=== PATIENT | female | born 1945 | race Caucasian/White ===

== ENCOUNTER 2018-09-26 05:45 | Day surgery (SDC) | payer MEDICARE ==
[2018-09-26] MEDS ORDERED: DIPRIVAN 200 MG/20 ML IV ONE (05:46)
[2018-09-26] MEDS ORDERED: Lactated Ringers 1,000 ML IV SCH (06:30)
[2018-09-26 08:52] VITALS: PULSE 50; O2SAT 99
[2018-09-26 09:07] VITALS: BP 133/76
--- NOTE | 2018-09-26 09:29 | OP ---
SURGERY DATE/TIME: 09/26/2018 0731 PREOPERATIVE DIAGNOSIS: Screening colonoscopy. POSTOPERATIVE DIAGNOSIS: Normal colon. PROCEDURE: Colonoscopy. SURGEON: Carlos Alberto Humphrey M.D. ANESTHESIA: MAC. ESTIMATED BLOOD LOSS: None. SPECIMENS: None. DESCRIPTION OF PROCEDURE: After informed written consent was obtained, the patient was taken to the endoscopy suite. She underwent monitored anesthesia and digital rectal exam was performed and showed normal sphincter tone and no internal lesions. The scope was inserted into the rectum and sequentially the entire colonic mucosa was traversed. The level of cecum was reached and verified with direct visualization of ileocecal valve. Upon withdrawal careful mucosal inspection revealed no gross abnormalities. Prior to withdrawal retroflexion was performed and showed no internal lesions. The scope was removed and the patient was transferred to the recovery room in good condition.
== END 2018-09-26 09:10 | disposition home or self-care (01) ==
LOC: SDC 05:45
PROVIDERS: ATTEND Family Medicine
DX: Z12.11 Encounter for screening for malignant neoplasm of colon (principal); E11.9 Type 2 diabetes mellitus without complications; J44.9 Chronic obstructive pulmonary disease, unspecified; Z79.899 Other long term (current) drug therapy
CPT/HCPCS: 82962; G0121; 99100; J2704

== ENCOUNTER 2025-02-06 06:04 | Day surgery (SDC) | payer MEDICARE ==
[2025-02-06] MEDS ORDERED: propofoL IV ONE ×2 (07:44→08:18)
[2025-02-06 09:32] VITALS: O2SAT 99
[2025-02-06 09:35] VITALS: BP 120/68; PULSE 68; RESP 18; TEMP 97.2
--- NOTE | 2025-02-07 12:07 | OP ---
SURGERY DATE/TIME: 02/06/2025 [id number] PREOPERATIVE DIAGNOSES: 1) Dysphagia. 2) Right lower quadrant pain. POSTOPERATIVE DIAGNOSES: 1) Normal esophagogastroduodenoscopy. 2) Normal colon. PROCEDURES: Esophagogastroduodenoscopy and colonoscopy. SURGEON: Carlos Alberto Humphrey MD ANESTHESIA: MAC by Jaguar Flores CRNA. ESTIMATED BLOOD LOSS: None. SPECIMENS: None. DESCRIPTION OF PROCEDURE AND FINDINGS: After informed written consent was obtained, the patient was taken to the endoscopy suite. She was placed in left lateral decubitus position and a bite block was inserted. Anesthesia was titrated to the desired level of consciousness and then the endoscope was inserted in the posterior oropharynx. Upon entry into the esophagus, there was normal esophageal mucosa. No obvious lesions or defects were encountered. Upon entry into the stomach, there was normal rugae of the gastric mucosa with no obvious lesions or abnormalities. The pylorus was traversed and the duodenum had a normal mucosal appearance as well. Upon withdrawal, again, all mucosal structures, including the GE junction, appeared within normal limits. The scope was removed and the scopes were switched. Digital rectal exam showed normal sphincter tone and no internal lesions. The scope was inserted into the rectum and sequentially the entire colonic mucosa was traversed. The level of the cecum was reached and verified with direct visualization of the ileocecal valve. Upon withdrawal, careful mucosal inspection revealed no gross abnormalities. Prior to withdrawal, retroflexion showed no internal lesions. The scope was removed and patient was transferred to the recovery room in good condition.
== END 2025-02-06 09:43 | disposition home or self-care (01) ==
LOC: SDC 06:04
PROVIDERS: ATTEND Family Medicine
DX: Z09 Encounter for follow-up examination after completed treatment for conditions other than malignant neoplasm (principal); Z86.0100 Personal history of colon polyps, unspecified; R13.10 Dysphagia, unspecified; R63.4 Abnormal weight loss; R10.31 Right lower quadrant pain; E11.9 Type 2 diabetes mellitus without complications